=== PATIENT | female | born 1990 | race Two or more races ===

== ENCOUNTER → 2021-08-27 13:06 | Outpatient (BNVA) | payer SELFPAY | PROVIDERS: PCP Pediatrics Pediatric Rheumatology; Visit Provider Physician Assistant Medical | DX: Z02.79 Encounter for issue of other medical certificate (principal) ==

== ENCOUNTER → 2023-08-19 13:06 | Outpatient (BNVA) | payer SELFPAY | PROVIDERS: PCP Pediatrics Pediatric Rheumatology; Visit Provider Physician Assistant | DX: Z02.79 Encounter for issue of other medical certificate (principal) ==